=== PATIENT | female | born 1985 ===

== ENCOUNTER 2018-05-13 11:00 | Outpatient (CLI) | payer BC | END 2018-05-13 11:01 | disposition home or self-care (01) | LOC: SLR 11:00 | PROVIDERS: ATTEND Otolaryngology | DX: G47.30 Sleep apnea, unspecified (principal) | CPT/HCPCS: G0399 ==

== ENCOUNTER 2018-07-25 11:00 | Outpatient (CLI) | payer BC | END 2018-07-25 11:01 | disposition home or self-care (01) | LOC: SLR 11:00 | PROVIDERS: ATTEND Otolaryngology | DX: G47.33 Obstructive sleep apnea (adult) (pediatric) (principal) | CPT/HCPCS: 95811 ==